=== PATIENT | male | born 1975 | race Caucasian/White ===

== ENCOUNTER 2019-04-04 07:23 | Emergency (ER) | payer SELFPAY ==
[2019-04-04] MEDS ORDERED: Sodium Chloride 0.9% 1,000 ML IV SCH ×2 (08:00→08:45)
--- NOTE | 2019-04-04 08:19 | EDM.PDOC ---
ED HPI GENERAL MEDICAL PROBLEM - General Chief Complaint: Syncope Stated Complaint: SWEATING, AND PASSING OUT Time Seen by Provider: 04/04/19 08:15 Source of Information: Reports: Patient History Limitations: Reports: No Limitations - History of Present Illness INITIAL COMMENTS - FREE TEXT/NARRATIVE: pt was in the bathroom and was brushing his teeth. He felt like he was going to pass out. He sat down on the tolet and he did pass out. Later he was walking into the kitchen and he passed out again. He did not appear to have seizure activity Onset: Today, Sudden Duration: Hour(s): Location: Reports: Generalized, Other (pt had 2 syncopal episodes. ) Severity: Mild Improves with: Reports: None Associated Symptoms: Reports: Syncope, Weakness - Related Data Allergies Allergy/AdvReac Type Severity Reaction Status Date / Time No Known Allergies Allergy Verified 04/04/19 07:46 Home Meds: Home Meds NK [No Known Home Meds] 04/04/19 [History] Past Medical History HEENT History: Reports: Impaired Vision Musculoskeletal History: Reports: Fracture - Past Surgical History Musculoskeletal Surgical History: Reports: Arthroscopic Knee Social & Family History - Tobacco Use Smoking Status *Q: Light Tobacco Smoker Years of Tobacco use: 20 Packs/Tins Daily: 0.5 - Recreational Drug Use Recreational Drug Use: No ED ROS GENERAL - Review of Systems Review Of Systems: See Below Constitutional: Reports: No Symptoms, Fatigue HEENT: Reports: No Symptoms Respiratory: Reports: No Symptoms Cardiovascular: Reports: No Symptoms Endocrine: Reports: No Symptoms GI/Abdominal: Reports: No Symptoms : Reports: No Symptoms Musculoskeletal: Reports: No Symptoms Skin: Reports: No Symptoms Neurological: Reports: Syncope Psychiatric: Reports: No Symptoms ED EXAM, GENERAL - Physical Exam Exam: See Below Free Text/Narrative:: pt arrived after having 2 syncopal episodes at home He has been drinking fluids , no etoh was involved. He did not have pain of any kind. Exam Limited By: No Limitations General Appearance: Alert, No Apparent Distress, Anxious, Other (pupils are equal and reactive. ) Ears: Normal TMs Nose: Normal Inspection Throat/Mouth: Normal Inspection Head: Atraumatic Neck: Normal Inspection Respiratory/Chest: No Respiratory Distress Cardiovascular: Regular Rate, Rhythm, Bradycardia, Other (pt had a heart rate of 50. His bp was 108 and lying down it was 98. ) GI/Abdominal: Soft, Non-Tender, Other (pt did not have nausea or tenderness. ) (Male) Exam: Deferred Rectal (Males) Exam: Deferred Back Exam: Normal Inspection Extremities: Normal Inspection Neurological: Alert, Oriented, Normal Cognition Psychiatric: Normal Affect Course - Vital Signs Last Recorded V/S: Last Vital Signs Temp 36.7 C 04/04/19 07:45 Pulse 48 L 04/04/19 08:40 Resp 13 04/04/19 08:40 BP 100/53 L 04/04/19 08:40 Pulse Ox 98 04/04/19 08:40 Orthostatic Blood Pressure [ 98/51 Standing] Orthostatic Blood Pressure [ 105/56 Sitting] Orthostatic Blood Pressure [ 99/53 Supine] - Orders/Labs/Meds Orders: Active Orders 24 hr Category Date Time Status EKG Documentation Completion [RC] ASDIRECTED Care 04/04/19 07:51 Active UA W/MICROSCOPIC [URIN] Urgent Lab 04/04/19 07:48 Ordered Sodium Chloride 0.9% [Normal Saline] 1,000 ml Med 04/04/19 08:00 Active IV ASDIRECTED Sodium Chloride 0.9% [Normal Saline] 1,000 ml Med 04/04/19 08:45 Active IV ASDIRECTED EKG 12 Lead [EK] Routine Ther 04/04/19 07:51 Ordered Medication Orders Sodium Chloride (Normal Saline) 1,000 mls @ 999 mls/hr IV ASDIRECTED BUD Last Admin: 04/04/19 08:07 Dose: 999 mls/hr Sodium Chloride (Normal Saline) 1,000 mls @ 999 mls/hr IV ASDIRECTED BUD Last Admin: 04/04/19 09:26 Dose: 999 mls/hr Labs: Laboratory Tests 04/04/19 04/04/19 Range/Units 07:59 07:59 WBC 6.9 (4.5-11.0) K/uL RBC 5.02 (4.30-5.90) M/uL Hgb 15.8 H (12.0-15.0) g/dL Hct 48.3 (40.0-54.0) % MCV 96 (80-98) fL MCH 32 H (27-31) pg MCHC 33 (32-36) % Plt Count 247 (150-400) K/uL Neut % (Auto) 63 (36-66) % Lymph % (Auto) 27 (24-44) % [place] % (Auto) 6 (2-6) % Eos % (Auto) 4 (2-4) % Baso % (Auto) 1 (0-1) % Sodium 141 (140-148) mmol/L Potassium 4.1 (3.6-5.2) mmol/L Chloride 104 (100-108) mmol/L Carbon Dioxide 27 (21-32) mmol/L Anion Gap 9.7 (5.0-14.0) mmol/L BUN 20 H (7-18) mg/dL Creatinine 1.0 (0.8-1.3) mg/dL Est Cr Clr Drug Dosing 99.36 mL/min Estimated GFR (MDRD) > 60 (>60) Glucose 105 (74-106) mg/dL Calcium 8.5 (8.5-10.1) mg/dL Total Bilirubin 0.4 (0.2-1.0) mg/dL AST 9 L (15-37) U/L ALT 23 (12-78) U/L Alkaline Phosphatase 69 (46-116) U/L Troponin I < 0.017 (0.000-0.056) ng/mL Total Protein 7.2 (6.4-8.2) g/dL Albumin 3.7 (3.4-5.0) g/dL Globulin 3.5 (2.3-3.5) g/dL Albumin/Globulin Ratio 1.1 L (1.2-2.2) Meds: Medications Generic Name Dose Route Start Last Admin Trade Name Saroj PRN Reason Stop Dose Admin Sodium Chloride 1,000 mls @ 999 mls/hr 04/04/19 08:00 04/04/19 08:07 Normal Saline IV 999 mls/hr ASDIRECTED BUD Administration Sodium Chloride 1,000 mls @ 999 mls/hr 04/04/19 08:45 04/04/19 09:26 Normal Saline IV 999 mls/hr ASDIRECTED BUD Administration Discontinued Medications Generic Name Dose Route Start Last Admin Trade Name Freq PRN Reason Stop Dose Admin Ibuprofen 400 mg 04/04/19 09:14 04/04/19 09:25 Motrin PO 04/04/19 09:15 400 mg ONETIME ONE Administration - Re-Assessments/Exams Free Text/Narrative Re-Assessment/Exam: 04/04/19 09:59 pt arrived with a history of syncope x 2 . His bp is on thw low side. His rate is 50. he appears dehydrated. He had a cat scan of the head that was normal. He had a chest xray which was normal. He had a ekg which looked good except his heart rate was 50. He has a normal trop. Departure - Departure Time of Disposition: 10:01 Disposition: Home, Self-Care 01 Condition: Fair Clinical Impression: Dehydration, Syncope Referrals: PCP,None [Primary Care Provider] - Forms: ED Department Discharge Care Plan Goals: push fluids, low activity today. Do not run machinery. rtc if further problems. Sepsis Event Note - Evaluation Sepsis Screening Result: No Definite Risk - Focused Exam Vital Signs: Vital Signs Temp Pulse Resp BP Pulse Ox 04/04/19 08:40 48 L 13 100/53 L 98 04/04/19 07:45 36.7 C 55 L 16 108/55 L 99 04/04/19 07:44 36.7 C 55 L 16 108/55 L 99 Date Exam was Performed: 04/04/19 Time Exam was Performed: 09:54 - My Orders Last 24 Hours: My Active Orders 04/04/19 07:48 UA W/MICROSCOPIC [URIN] Urgent 04/04/19 07:51 EKG Documentation Completion [RC] ASDIRECTED EKG 12 Lead [EK] Routine 04/04/19 08:00 Sodium Chloride 0.9% [Normal Saline] 1,000 ml IV ASDIRECTED 04/04/19 08:45 Sodium Chloride 0.9% [Normal Saline] 1,000 ml IV ASDIRECTED - Assessment/Plan Last 24 Hours: My Active Orders 04/04/19 07:48 UA W/MICROSCOPIC [URIN] Urgent 04/04/19 07:51 EKG Documentation Completion [RC] ASDIRECTED EKG 12 Lead [EK] Routine 04/04/19 08:00 Sodium Chloride 0.9% [Normal Saline] 1,000 ml IV ASDIRECTED 04/04/19 08:45 Sodium Chloride 0.9% [Normal Saline] 1,000 ml IV ASDIRECTED
--- NOTE | 2019-04-04 08:35 | CRLCR ---
INDICATION: Syncope. FINDINGS: A portable AP upright view of the chest was obtained. The cardiac silhouette and pulmonary vasculature are within normal limits. The lungs are clear bilaterally. IMPRESSION: No evidence of acute pulmonary disease. Dictated by Dayday Bruno MD @ 04/04/2019 8:34:05 AM Dictated by: Dayday Bruno MD @ 04/04/2019 08:34:11 (Electronically Signed)
--- NOTE | 2019-04-04 08:48 | CRLCT ---
INDICATION: Syncope. TECHNIQUE: Multiple axial images were obtained through the brain without contrast. Coronal re-formatted images were obtained. COMPARISON: None. FINDINGS: The ventricles and sulci are within normal limits. There is no mass effect or midline shift. There is no intracranial hemorrhage. The brown-white matter differentiation is unremarkable. There is no fracture identified on bone windows. IMPRESSION: No acute intracranial abnormality. Dictated by Dayday Bruno MD @ 04/04/2019 8:46:34 AM Please note that all CT scans at this facility use dose modulation, iterative reconstruction, and/or weight-based dosing when appropriate to reduce radiation dose to as low as reasonably achievable. Dictated by: Dayday Bruno MD @ 04/04/2019 08:46:37 (Electronically Signed)
[2019-04-04] MEDS ORDERED: Ibuprofen 400 MG Tab PO ONE (09:14)
== END 2019-04-04 10:29 | disposition home or self-care (01) ==
LOC: JP.ED 07:23
DX: R55 Syncope and collapse (principal); E86.0 Dehydration; F17.200 Nicotine dependence, unspecified, uncomplicated
CPT/HCPCS: 36415; 70450; 71045; 80053; 81001; 84484; 85025; 93005; 93010; 96360; 96361; 99285; A9270; J7030